=== PATIENT | female | born 1970 | race Caucasian/White ===

== ENCOUNTER → 2016-08-12 | Outpatient (CLI) | payer OTHER ==
[~2016-08-12] MED LIST: AMLO10TA82 PO; ASP81TEC PO; NEBI5TAB8 PO; NFNEB10T PO; OMEP40CA36 PO; OMG1KC PO; SULF1TAB34 PO
--- NOTE | 2016-08-12 18:52 | Diagnostic Imaging Report ---
INDICATION: Left knee pain anterior and below the patella, arthritis. COMPARISON STUDY: None. FINDINGS: Three views of the left knee demonstrate minimal degenerative changes. No fracture, subluxation, or joint effusion is present. IMPRESSION: There are minimal degenerative changes of the patellofemoral joint. Dictated by: Dictated on workstation # [id number]
== END ==
LOC: RAD 17:49
PROVIDERS: ATTEND Family Medicine
DX: M17.12 Unilateral primary osteoarthritis, left knee (principal)
CPT/HCPCS: 73562

== ENCOUNTER → 2017-01-22 | Outpatient (CLI) | payer OTHER | LOC: CARD 10:02 | PROVIDERS: ATTEND Physician Assistant | DX: I25.10 Atherosclerotic heart disease of native coronary artery without angina pectoris (principal); I65.23 Occlusion and stenosis of bilateral carotid arteries; I10 Essential (primary) hypertension; E78.2 Mixed hyperlipidemia | CPT/HCPCS: 93306 ==

== ENCOUNTER → 2017-02-18 | Outpatient (CLI) | payer OTHER ==
--- NOTE | 2017-02-18 14:16 | Diagnostic Imaging Report ---
Left breast diagnostic mammogram with tomography. INDICATION: Left breast lump. The current study was also evaluated with a Computer Aided Detection (CAD) system. COMPARISON: 05/06/2016. FINDINGS: The left breast is composed of scattered fibroglandular densities. The area of palpable lump in the lateral aspect of the left breast is marked with no underlying abnormality seen. No suspicious calcification, mass or architectural distortion is noted. IMPRESSION: No mammographic evidence of malignancy. Ultrasound evaluation is pending. ACR BI-RADS Category 0: Incomplete. (Needs additional imaging evaluation). Result letter will be mailed to the patient. Note: At least 10% of breast cancer is not imaged by mammography. Dictated by: Dictated on workstation # [id number]
--- NOTE | 2017-02-18 14:21 | Diagnostic Imaging Report ---
Left breast ultrasound. INDICATION: Palpable lump. FINDINGS: The area of palpable lump in the left breast at 1 o'clock zone 4 cm from the nipple and surrounding region is scanned with no underlying abnormality. IMPRESSION: Negative study. Clinical follow-up of the palpable area is recommended. ACR BI-RADS Category 1: Negative. Dictated by: Dictated on workstation # [id number]
== END ==
LOC: RAD 07:48
PROVIDERS: ATTEND Family Medicine
DX: N63.20 Unspecified lump in the left breast, unspecified quadrant (principal)
CPT/HCPCS: 76642

== ENCOUNTER → 2017-10-19 | Outpatient (CLI) | payer OTHER ==
--- NOTE | 2017-10-20 13:15 | Diagnostic Imaging Report ---
INDICATION: Routine screening. COMPARISON: 05/06/2016 and 06/15/2015 as well as a left mammogram from 02/18/2017. TECHNIQUE: 2D and 3D bilateral screening mammography was performed with CAD. FINDINGS: Scattered fibroglandular densities are identified bilaterally. No dominant mass or malignant appearing microcalcifications are seen. There are benign calcifications present. The axillae are unremarkable. IMPRESSION: No mammographic features suspicious for malignancy are identified. ACR BI-RADS Category 2: Benign findings. Result letter will be mailed to the patient. Note: At least 10% of breast cancer is not imaged by mammography. Dictated by: Dictated on workstation # [id number]
== END ==
LOC: RAD 15:37
PROVIDERS: ATTEND Obstetrics & Gynecology
DX: Z12.31 Encounter for screening mammogram for malignant neoplasm of breast (principal)
CPT/HCPCS: 77067

== ENCOUNTER → 2018-04-08 | Outpatient (CLI) | payer OTHER ==
--- NOTE | 2018-04-08 08:14 | Diagnostic Imaging Report ---
PROCEDURE: MRI lumbar spine. TECHNIQUE: Multiplanar, multisequence MRI of the lumbar spine was performed without contrast. INDICATION: Low back injury from lifting. FINDINGS: Vertebral body height and alignment appear normal. The vertebral bodies have normal signal characteristics. There are no intrinsic cord abnormalities. There is slight desiccation of the discs at L1-L2, L2-L3 and L3-L4 and there are small Schmorl's nodes of the opposing endplates at each of those levels. At L4-L5, there is disc space narrowing with concentric bulging of the annulus. There is also some thickening of the ligamenta flava and hypertrophy of the facets. This is causing bilateral lateral recess narrowing. At L5-S1, there is a left paracentral disc herniation causing moderate ventral extradural defect. There is also some thickening of ligamenta flava and hypertrophy of the facets. IMPRESSION: Left paracentral disc herniation at L5-S1. There is bulging disc and hypertrophied facets at L4-L5 causing bilateral lateral recess narrowing at that level. Dictated by: Dictated on workstation # [id number]
== END ==
LOC: RAD 07:00
PROVIDERS: ATTEND Family Medicine
DX: S39.92XA Unspecified injury of lower back, initial encounter (principal); M51.17 Intervertebral disc disorders with radiculopathy, lumbosacral region; M48.061 Spinal stenosis, lumbar region without neurogenic claudication; X50.9XXA Other and unspecified overexertion or strenuous movements or postures, initial encounter
CPT/HCPCS: 72148

== ENCOUNTER 2018-11-18 05:40 | Outpatient (CLI) | payer OTHER ==
[~2018-11-18] VITALS: Ht 172.7 cm; Wt 96.2 kg
[~2018-11-18 05:40] MED LIST changes: -AMLO10TA7 PO; -ASPI-999 PO; -METO-370 PO; -OMEP20CA12 PO; -PRAV20TA3 PO
[2018-11-18] MEDS ORDERED: OMEP20CA12 PO (10:28)
[2018-11-18] MEDS ORDERED: METO-370 PO (10:28)
[2018-11-18] MEDS ORDERED: AMLO10TA7 PO (10:28)
[2018-11-18] MEDS ORDERED: PRAV20TA3 PO (10:28)
[2018-11-18] MEDS ORDERED: ASPI-999 PO (10:28)
== END 2018-11-18 10:32 | disposition home or self-care (01) ==
LOC: PREOP 05:40
PROVIDERS: ATTEND Surgery
DX: Z01.818 Encounter for other preprocedural examination (principal)

== ENCOUNTER → 2018-11-18 | Outpatient (CLI) | payer OTHER ==
[~2018-11-18] MED LIST changes: +AMLO10TA7 PO; +ASPI-999 PO; +METO-370 PO; +OMEP20CA12 PO; +PRAV20TA3 PO
--- NOTE | 2018-11-18 09:59 | Diagnostic Imaging Report ---
INDICATION: Routine screening. COMPARISON: 10/19/2017 and 05/06/2016. TECHNIQUE: 2D and 3D bilateral screening mammography was performed with CAD. FINDINGS: Scattered fibroglandular densities are identified bilaterally. The parenchymal pattern is stable. No dominant mass or malignant appearing microcalcifications are seen. The axillae are unremarkable. IMPRESSION: No mammographic features suspicious for malignancy are identified. ACR BI-RADS Category 1: Negative. Result letter will be mailed to the patient. Note: At least 10% of breast cancer is not imaged by mammography. Dictated by: Dictated on workstation # [id number]
== END ==
LOC: RAD 07:44
PROVIDERS: ATTEND Obstetrics & Gynecology
DX: Z12.31 Encounter for screening mammogram for malignant neoplasm of breast (principal)
CPT/HCPCS: 77067

== ENCOUNTER 2018-11-19 12:48 | Day surgery (SDC) | payer OTHER ==
[~2018-11-19] VITALS: Ht 172.7 cm; Wt 96.2 kg
[~2018-11-19 12:48] MED LIST changes: +AMLO10TA7 PO; +ASPI-999 PO; +METO-370 PO; +OMEP20CA12 PO; +PRAV20TA3 PO
[2018-11-19] MEDS ORDERED: NS IV 500 ML 500 ML ONE (12:56)
[2018-11-19] MEDS ORDERED: NS IV 500 ML 500 ML IV PRN (12:56)
[2018-11-19] MEDS ORDERED: fentaNYL INJECTION 100 MCG/2 ML AMP IVP ONE (13:00)
[2018-11-19] MEDS ORDERED: MIDAZOLAM 2 MG/2 ML (VERSED) VIAL IVP ONE (13:00)
[2018-11-19] MEDS ORDERED: LIDOCAINE JELLY 2% 6 ML SYRINGE MM PRN (13:00)
[2018-11-19 13:10] VITALS: BP 136/79
--- NOTE | 2018-11-19 13:13 | Conscious Sedation/ASA ---
Conscious Sedation Pre-Proced Time 13:00 ASA Score 2 For ASA 3 and 4: Consider anesthesia and medical clearance. Also, for patients with a history of failed moderate sedation consider anesthesia. Airway Lungs Heart ASA score ASA 1: a normal healthy patient ASA 2: a patient with a mild systemic disease (mid diabetes, controlled hypertension, obesity ASA 3: a patient with a severe systemic disease that limits activity (angina, COPD, prior Myocardial infarction) ASA 4: a patient with an incapacitating disease that is a constant threat to life (CHF, renal failure) ASA 5: a moribund patient not expected to survive 24 hrs. (ruptured aneurysm) ASA 6: a declared brain- patient whose organs are being harvested. For emergent operations, add the letter E after the classification Mallampati Classification Grade 2 Sedation Plan Analgesia, Amnesia, Plan communicated to team members, Discussed options with patient/fam, Discussed risks with patient/fam The patient is an appropriate candidate to undergo the planned procedure, sedation, and anesthesia. The patient immediately re-assessed prior to indication. CODI OSBORNE MD Nov 19, 2018 13:13
--- NOTE | 2018-11-19 13:13 | Progress Note-Pre Operative ---
Pre-Operative Progress Note H&P Reviewed The H&P was reviewed, patient examined and no changes noted. Date Seen by Provider: Nov 19, 2018 Time Seen by Provider: 13:00 Date H&P Reviewed: Nov 19, 2018 Time H&P Reviewed: 13:00 Pre-Operative Diagnosis: CODI Sevilla MD Nov 19, 2018 13:13
--- NOTE | 2018-11-19 13:14 | Discharge Inst-Surgical ---
D/C Lap Instructions-DYLON Follow Up Activity as tolerated High Fiber Diet 25g or more per day Avoid Alcohol, Caffeine, Spicy [place] and Acid foods. Drink 64 fluid oz or more of fluids per day. Symptoms to Report: Fever over 101 degree F, Nausea/Vomiting If any problems/questions: Contact your physician or go to Emergency Room CODI OSBORNE MD Nov 19, 2018 13:14
[2018-11-19] MEDS ORDERED: morphine INJ 10 MG/ML 1ML (SYR OR VIAL) IVP PRN ×2 (13:15)
[2018-11-19] MEDS ORDERED: HYDROcodone/APAP 5 MG/325 MG (LORTAB) TAB PO PRN (13:15)
[2018-11-19] MEDS ORDERED: ONDANSETRON 4 MG/2 ML (SDV) Z0FRAN IVP PRN (13:15)
[2018-11-19] MEDS ORDERED: ACETAMINOPHEN 325 MG TABLET PO PRN (13:15)
[2018-11-19] MEDS ORDERED: LIDOCAINE JELLY 2% 6 ML SYRINGE ONE (14:29)
[2018-11-19] MEDS ORDERED: fentaNYL INJECTION 100 MCG/2 ML AMP ONE ×2 (14:29)
[2018-11-19] MEDS ORDERED: MIDAZOLAM 2 MG/2 ML (VERSED) VIAL ONE ×4 (14:29→14:30)
--- NOTE | 2018-11-19 15:46 | Progress Note-Post Operative ---
Post-Operative Progess Note Surgeon (s)/Assistant Women'S Basketball Coach (s) Surgeon CODI OSBORNE MD Assistant Women'S Basketball Coach: none Pre-Operative Diagnosis screening Post-Operative Diagnosis mild chronic stage 2 ext and int hemorrhoids, mild sigmoid diverticulosis. Procedure & Operative Findings Date of Procedure 11/19/18 Procedure Performed/Findings colonoscopy Anesthesia Type cs Estimated Blood Loss Estimated blood loss (mL): minimal Specimens/Packing Specimens Removed none CODI OSBORNE MD Nov 19, 2018 15:46
[2018-11-19 16:15] VITALS: BP 135/74
--- NOTE | 2018-11-19 21:12 | OPERATIVE REPORT ---
DATE OF SERVICE: 11/19/2018 ATTENDING PRIMARY CARE PHYSICIAN: Dr. Soledad Silver. PREOPERATIVE DIAGNOSIS: Screening colonoscopy. POSTOPERATIVE DIAGNOSES: Mild chronic stage II external and internal hemorrhoids, mild sigmoid diverticulosis. PROCEDURE: Colonoscopy. SURGEON: Dr. Osborne. ANESTHESIA: Conscious sedation. ESTIMATED BLOOD LOSS: Minimal. FINDINGS: Mild chronic stage II external and internal hemorrhoids, mild sigmoid diverticulosis. DISPOSITION: The patient tolerated the procedure well. INDICATIONS: The patient is a 48-year-old female referred over to us for screening colonoscopy. She states that she is doing well for the most part. 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 She does not report any major issues with diarrhea nor constipation as well as no red blood per rectum nor any dark tarry stools. She also does not report any family history of colon cancer. DESCRIPTION OF PROCEDURE: The patient was brought to the endoscopy suite, laid in the left lateral decubitus position. After adequate IV pain and sedating medications and conscious sedation anesthesia, digital rectal examination was performed. Mild chronic stage II external and internal hemorrhoids were identified, which were not actively edematous or inflamed and no bleeding. Normal sphincter tone was felt and there were no palpable masses. The endoscope was then intubated into the anus and rectum gently insufflated. The endoscope was then advanced to the valves of Romero of the rectum with no polyps or any neoplasms identified. Through the sigmoid colon, a few mild isolated diverticula identified. The endoscope was then advanced to the remainder of the descending, transverse and ascending colon to the cecum. These segments were normal. There were no polyps or any neoplasms identified throughout the colon or rectum. The endoscope was slowly withdrawn while taking a second look and suctioning of residual air with no additional findings. The patient tolerated the procedure well. We will recommend medical management with a high fiber diet with at least 25 grams of fiber daily as well as significant amounts of water to promote soft stools on a daily basis. She does not need another colonoscopy for another 10 years. Job ID: [id number] DocumentID: [id number] Dictated Date: 11/19/2018 15:38:52 Interior Surface Insulation Worker Date: 11/19/2018 21:12:09 Dictated By: CODI OSBORNE MD
== END 2018-11-19 16:20 | disposition home or self-care (01) ==
LOC: ENDO 12:48
PROVIDERS: ATTEND Surgery
DX: Z12.11 Encounter for screening for malignant neoplasm of colon (principal); K57.30 Diverticulosis of large intestine without perforation or abscess without bleeding; K64.1 Second degree hemorrhoids; K21.9 Gastro-esophageal reflux disease without esophagitis; E78.00 Pure hypercholesterolemia, unspecified; I10 Essential (primary) hypertension; G62.9 Polyneuropathy, unspecified; M48.00 Spinal stenosis, site unspecified; Z88.1 Allergy status to other antibiotic agents; Z88.5 Allergy status to narcotic agent; Z79.899 Other long term (current) drug therapy; F17.210 Nicotine dependence, cigarettes, uncomplicated

== ENCOUNTER → 2019-03-11 | Outpatient (CLI) | payer OTHER ==
[~2019-03-11] MED LIST changes: -METO-370 PO; +METO50TA7 PO; +OMEP-280 PO; -OMEP20CA12 PO
== END ==
LOC: CARD 10:34
PROVIDERS: ATTEND Physician Assistant
DX: I35.1 Nonrheumatic aortic (valve) insufficiency (principal); I51.7 Cardiomegaly; I25.10 Atherosclerotic heart disease of native coronary artery without angina pectoris; I65.29 Occlusion and stenosis of unspecified carotid artery; K21.9 Gastro-esophageal reflux disease without esophagitis
CPT/HCPCS: 93306

== ENCOUNTER 2019-05-29 10:52 | Emergency (ER) | payer OTHER ==
[~2019-05-29] VITALS: Ht 172.7 cm; Wt 95.3 kg
[2019-05-29] MEDS ORDERED: ASPIRIN 81 MG CHEW (CHILDREN'S ASA) PO ONE (11:15)
[2019-05-29] MEDS ORDERED: D5 NS 1000 ML IV SOLUTION 1,000 ML IV ONE (11:21)
[2019-05-29 11:22] LABS: BASOPHILS % (AUTO) 0 % (0-10); EOSINOPHILS # (AUTO) 0.1 10^3/uL (0.0-0.3); EOSINOPHILS % (AUTO) 1 % (0-10); HEMATOCRIT 39 % (35-52); HEMOGLOBIN 13.2 G/DL (11.5-16.0); LYMPHOCYTES # (AUTO) 1.7 X 10^3 (1.0-4.0); LYMPHOCYTES % (AUTO) 29 % (12-44); MEAN CORPUSCULAR HEMOGLOBIN 30 PG (25-34); MEAN CORPUSCULAR HGB CONC 34 G/DL (32-36); MEAN CORPUSCULAR VOLUME 88 FL (80-99); MEAN PLATELET VOLUME 10.8 FL (7.4-10.4); MONOCYTES # (AUTO) 0.4 X 10^3 (0.0-1.0); MONOCYTES % (AUTO) 7 % (0-12); NEUTROPHILS # (AUTO) 3.7 X 10^3 (1.8-7.8); NEUTROPHILS % (AUTO) 62 % (42-75); PLATELET COUNT 227 10^3/uL (130-400); RED CELL DISTRIBUTION WIDTH 12.9 % (10.0-14.5); WHITE BLOOD COUNT 5.9 10^3/uL (4.3-11.0)
[2019-05-29] MEDS ORDERED: ONDANSETRON 4 MG/2 ML (SDV) Z0FRAN IVP ONE (11:30)
[2019-05-29 11:36] LABS: PROTHROMBIN TIME PATIENT 13.8 SEC (12.2-14.7)
[2019-05-29 11:41] LABS: ALANINE AMINOTRANSFERASE 25 U/L (0-55); ALBUMIN 4.6 GM/DL (3.2-4.5); ALKALINE PHOSPHATASE 59 U/L (40-136); BILIRUBIN,TOTAL 0.4 MG/DL (0.1-1.0); BUN/CREATININE RATIO 13; CALCIUM 9.5 MG/DL (8.5-10.1); CARBON DIOXIDE 21 MMOL/L (21-32); CHLORIDE 107 MMOL/L (98-107); CREATININE SERUM 0.71 MG/DL (0.60-1.30); GFR ESTIMATED > 60; GLUCOSE 103 MG/DL (70-105); MAGNESIUM 1.8 MG/DL (1.6-2.4); POTASSIUM 3.6 MMOL/L (3.6-5.0); SODIUM 140 MMOL/L (135-145); TOTAL PROTEIN 7.4 GM/DL (6.4-8.2)
--- NOTE | 2019-05-29 11:49 | ED Chest Pain ---
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 PT STATES HX OF CHEST PAIN. NO C/O N/V/D. PT REPORTS PAIN DOES NOT RADIATE. PT REPORTS LEFT SIDE OF FACE "TINGLING". NO C/O WEAKNESS. Nursing Sepsis Screen: No Definite Risk History of Present Illness Date Seen by Provider: May 29, 2019 Time Seen by Provider: 11:05 Initial Comments 48-year-old female presents for a myriad of symptoms that began this morning. She slept last night, no complaints, Awoke this morning feeling fine. Had 2 cups of coffee, no food to eat. At 10:00 am she got in the shower and became dizzy and nauseated. She did not vomit or fall. The left side of her face, left arm and leg began to tingle. She has no history of diabetes or hypoglycemia. Then at approximately 10:30 she began having midsternal and left epigastric pain. The pain did not radiate into her shoulder, neck or jaw. She's had occassional chest pain/fluttering for 1-2 year, she sees Dr. Arellano and had an Echo in Mar 2019 that showed mild aortic regurgitation. GERD symptoms for which she takes omeprazole. She denies chest pain at this time, she took Aspirin this am. She is not on Nitro. She took metoprolol, pravastatin, and amlodipine this morning. She reports the tingling in her extremities has improved she still has mild tingling on the left side of her face. There is no facial drooping or complaints of weakness in any extremity. She denies a headache. But does still have mild nausea. She smokes cigarettes, 1 pack daily. She sees Dr. Arellano, next appt Mar 2020. History of Thyroid disorder in her 20s but after having her daughter TSH and T4 normal. Timing/Duration: 1 hour Severity/Quality: mild Location: central, epigastric Radiation: no radiation Activities at Onset: none Prior CP/Workup: echocardiography Modifying Factors: improves with rest ASA po CHIEF PSYCHOLOGIST: Yes NTG SL CHIEF PSYCHOLOGIST: No Associated Symptoms: No denies symptoms, No abdominal pain, No back pain, No di aphoresis; dizziness; No edema, No fatigue, No fever/chills, No headache; heartburn, nausea/vomiting; No rash, No shortness of breath, No swelling/lump in chest; syncope; No weakness Allergies and Home Medications Allergies Coded Allergies: codeine (Verified Allergy, Mild, ITCHING/HIVES, 11/18/18) erythromycin base (Verified Allergy, Mild, ITCHING/HIVES, 11/18/18) levofloxacin (Verified Allergy, Mild, ITCHING/HIVES, 11/18/18) tetracycline (Verified Allergy, Mild, "ALL CYCLINS", 11/18/18) Home Medications Amlodipine Besylate 10 Mg Tablet, 10 MG PO DAILY, (Reported) Aspirin 81 Mg Tab.chew, 81 MG PO DAILY, (Reported) Metoprolol Succinate 50 Mg Tab.er.24h, 50 MG PO BID, (Reported) Omeprazole 20 Mg Capsule.dr, 20 MG PO BID, (Reported) Pravastatin Sodium 20 Mg Tablet, 20 MG PO DAILY, (Reported) Patient Home Medication List Home Medication List Reviewed: Yes Review of Systems Review of Systems Constitutional: see HPI, dizziness EENTM: No Symptoms Reported, See HPI Respiratory: No Symptoms Reported, See HPI Cardiovascular: See HPI, Chest Pain Gastrointestinal: No Symptoms Reported, See HPI Genitourinary: No Symptoms Reported, See HPI Musculoskeletal: no symptoms reported, see HPI Skin: no symptoms reported, see HPI Psychiatric/Neurological: No Symptoms Reported, See HPI All Other Systems Reviewed Negative Unless Noted: Yes Past Fcdffqj-Hxezxw-Juhnaf Hx Past Med/Social Hx: Reviewed Nursing Past Med/Soc Hx Patient Social History Alcohol Use: Denies Use Recreational Drug Use: No Smoking Status: Current Everyday Smoker Type Used: Cigarettes 2nd Hand Smoke Exposure: Yes Recent Foreign Travel: No Contact w/Someone Who Travel: No Recent Infectious Disease Expo: No Recent Hopitalizations: No Physical Abuse: No Sexual Abuse: No Mistreated: No Fear: No Immunizations Up To Date Date of Influenza Vaccine: Feb 15, 2018 Seasonal Allergies Seasonal Allergies: Yes Past Medical History Surgeries: Yes (2 C-SECT.,ANKLE,CYSTS REMOVED FROM UNDERARMS, BACK) Gallbladder Respiratory: No Cardiac: Yes High Cholesterol, Hypertension Neurological: No Reproductive Disorders: No Sexually Transmitted Disease: No HIV/AIDS: No Genitourinary: No Gastrointestinal: Yes Gastroesophageal Reflux, Hiatal Hernia Musculoskeletal: Yes Arthritis Endocrine: No HEENT: Yes (GLASSES) Loss of Vision: Denies Hearing Impairment: Denies Cancer: No Psychosocial: No Integumentary: No Blood Disorders: No Adverse Reaction/Blood Tranf: No (N/A) Physical Exam Vital Signs Vital Signs - First Documented 05/29/19 12:54 Pulse Ox 99 Capillary Refill : Less Than 3 Seconds Height, Weight, BMI Height: 5'8.00" Weight: 212lbs. 0.0oz. 96.352533xk; 31.00 BMI Method: General Appearance: No Apparent Distress, WD/WN HEENT: PERRL/EOMI, TMs Normal, Normal ENT Inspection, Pharynx Normal Neck: Full Range of Motion, Normal Inspection, Non Tender, Supple Respiratory: Chest Non Tender, Lungs Clear, Normal Breath Sounds Cardiovascular: Regular Rate, Rhythm, No Murmur, Normal Peripheral Pulses Gastrointestinal: Normal Bowel Sounds, Non Tender, Soft Extremity: Normal Capillary Refill, Normal Inspection, Normal Range of Motion, Non Tender, No Calf Tenderness Neurologic/Psychiatric: Alert, Oriented x3, No Motor/Sensory Deficits, Normal Mood/Affect, clinical support manager II-XII Norm as Tested Skin: Normal Color, Warm/Dry Lymphatic: No Adenopathy Progress/Results/Core Measures Results/Orders Lab Results Laboratory Tests Test 05/29/19 11:16 Range/Units White Blood Count 5.9 4.3-11.0 10^3/uL Red Blood Count 4.47 4.35-5.85 10^6/uL Hemoglobin 13.2 11.5-16.0 G/DL Hematocrit 39 35-52 % Mean Corpuscular Volume 88 80-99 FL Mean Corpuscular Hemoglobin 30 25-34 PG Mean Corpuscular Hemoglobin Concent 34 32-36 G/DL Red Cell Distribution Width 12.9 10.0-14.5 % Platelet Count 227 130-400 10^3/uL Mean Platelet Volume 10.8 H 7.4-10.4 FL Neutrophils (%) (Auto) 62 42-75 % Lymphocytes (%) (Auto) 29 12-44 % Monocytes (%) (Auto) 7 0-12 % Eosinophils (%) (Auto) 1 0-10 % Basophils (%) (Auto) 0 0-10 % Neutrophils # (Auto) 3.7 1.8-7.8 X 10^3 Lymphocytes # (Auto) 1.7 1.0-4.0 X 10^3 Monocytes # (Auto) 0.4 0.0-1.0 X 10^3 Eosinophils # (Auto) 0.1 0.0-0.3 10^3/uL Basophils # (Auto) 0.0 0.0-0.1 10^3/uL Prothrombin Time 13.8 12.2-14.7 SEC INR Comment 1.0 0.8-1.4 Activated Partial Thromboplast Time 29 24-35 SEC Sodium Level 140 135-145 MMOL/L Potassium Level 3.6 3.6-5.0 MMOL/L Chloride Level 107 98-107 MMOL/L Carbon Dioxide Level 21 21-32 MMOL/L Anion Gap 12 5-14 MMOL/L Blood Urea Nitrogen 9 7-18 MG/DL Creatinine 0.71 0.60-1.30 MG/DL Estimat Glomerular Filtration Rate > 60 BUN/Creatinine Ratio 13 Glucose Level 103 70-105 MG/DL Calcium Level 9.5 8.5-10.1 MG/DL Corrected Calcium 8.5-10.1 MG/DL Magnesium Level 1.8 1.6-2.4 MG/DL Total Bilirubin 0.4 0.1-1.0 MG/DL Aspartate Amino Transf (AST/SGOT) 20 5-34 U/L Alanine Aminotransferase (ALT/SGPT) 25 0-55 U/L Alkaline Phosphatase 59 40-136 U/L Myoglobin 31.2 10.0-92.0 NG/ML Troponin I < 0.028 <0.028 NG/ML Total Protein 7.4 6.4-8.2 GM/DL Albumin 4.6 H 3.2-4.5 GM/DL My Orders Orders - ROLANDO RUEDA Cbc With Automated Diff (05/29/19 11:12) Magnesium (05/29/19 11:12) Chest 1 View, Ap/Pa Only (05/29/19 11:12) Ekg Tracing (05/29/19 11:12) Comprehensive Metabolic Panel (05/29/19 11:12) Myoglobin Serum (05/29/19 11:12) Protime With Inr (05/29/19 11:12) Partial Thromboplastin Time (05/29/19 11:12) O2 (05/29/19 11:12) Monitor-Rhythm Ecg Trace Only (05/29/19 11:12) Ed Iv/Invasive Line Start (05/29/19 11:12) Ed Iv/Invasive Line Start (05/29/19 11:21) D5 Ns 1000 Ml Iv Solution (Dextrose 5%/0 (05/29/19 11:21) Ct Head Wo-R/O Stroke (05/29/19 11:21) Ondansetron Injection (Zofran Injectio (05/29/19 11:30) Troponin I (05/29/19 11:16) Meclizine Tablet (Antivert Tablet) (05/29/19 12:30) Medications Given in ED Current Medications Medications Dose Ordered Sig/Jolie Route Start Time Stop Time Status Last Admin Dose Admin Dextrose/Sodium Chloride 1,000 ml @ 0 mls/hr Q0M ONCE IV 05/29/19 11:21 05/29/19 11:24 DC 05/29/19 11:34 999 MLS/HR Meclizine HCl 25 mg ONCE ONCE PO 05/29/19 12:30 05/29/19 12:31 DC 05/29/19 12:22 25 MG Ondansetron HCl 8 mg ONCE ONCE IVP 05/29/19 11:30 05/29/19 11:31 DC 05/29/19 11:34 8 MG Vital Signs/I&O 05/29/19 05/29/19 05/29/19 11:05 11:05 12:54 Temp 36.6 Pulse 75 74 Resp 17 18 B/P (MAP) 149/90 (109) 155/78 Pulse Ox 99 O2 Delivery Room Air Room Air Room Air Blood Pressure Mean: 109 Progress Progress Note : Time: 11:05 Progress Note Patient seen and evaluated will obtain an EKG, lab workup, chest x-ray, and CT head. We'll give D5 and half-normal saline 1 L per IV, and Zofran 8 mg IV. 1145 Patient continues to be free of chest pain, nausea has improved. Will give meclizine 25 mg orally for vertigo. 1215 Patient reports chest pain, nausea and vertigo have all improved. Discharge instructions and return precautions reviewed with the patient. All questions answered. Initial ECG Impression Date: May 29, 2019 Initial ECG Impression Time: 10:58 Initial ECG Rate: 76 Initial ECG Rhythm: Normal Sinus Initial ECG Intervals AL 156, QRSD 104, QT 388, QTC 437. Gable P 2, QRS 10, T 38. Initial ECG Impression: Normal Initial ECG Comparisson: Unchanged Comment Reviewed with Dr. Fleming agreed with interpretation. Diagnostic Imaging Diagonstic Imaging: CT Plain Films/CT/US/NM/MRI: head Comments NAME: LICO KEARNS [facility] REC#: [id number] PT STATUS: REG ER : 1970 PHYSICIAN: ROLANDO RUEDA ADMIT DATE: 05/29/19/ER Draft Date of Exam:05/29/19 CT HEAD WO-R/O STROKE INDICATION: Dizziness and left-sided weakness. TECHNIQUE: Multiple contiguous axial images were obtained through the brain without the use of intravenous contrast. Auto Exposure Controls were utilized during the CT exam to meet ALARA standards for radiation dose reduction. FINDINGS: There were no extra-axial fluid collections. No intracranial hemorrhage. No intracranial mass or mass effect. No midline shift. The ventricles are normal in size and position. There were no focal parenchymal abnormalities in the brain. Calvarial windows appear normal. IMPRESSION: Negative noncontrast brain CT. Dictated on workstation # [id number] Dict: 05/29/19 1159 Trans: 05/29/19 1203 [id number] [id number] Interpreted by: DENYS CARTER MD Electronically signed by: Reviewed: Reviewed by Me Departure Impression Primary Impression: Chest pain Qualified Codes: R07.9 - Chest pain, unspecified Additional Impression: Gastroesophageal reflux disease Qualified Codes: K21.9 - Gastro-esophageal reflux disease without eso phagitis Disposition: HOME, SELF-CARE Condition: Improved Departure-Patient Inst. Decision time for Depature: 12:40 Referrals: LUIZA WEI MD (PCP/Family) Primary Care Physician Patient Instructions: Chest Pain That Is Not Caused by the Heart (DC), Vertigo (a Type of Dizziness) (DC) Add. Discharge Instructions: Continue to take your aspirin and all other routine home medications. Take meclizine 25 mg every 6-8 hours as needed for dizziness. Follow up with your primary care provider or transportation consultant if symptoms are not improving or worsen Return to the emergency department for chest pain, weakness, blood in her chest, or any other new, urgent symptoms. All discharge instructions reviewed with patient and/or family. Voiced aby aguilera. Copy Copies To 1: NINA ARELLANO MD Copies To 2: LUIZA WEI MD, AMY ARNP May 29, 2019 11:49
--- NOTE | 2019-05-29 12:03 | Diagnostic Imaging Report ---
INDICATION: Dizziness and left-sided weakness. TECHNIQUE: Multiple contiguous axial images were obtained through the brain without the use of intravenous contrast. Auto Exposure Controls were utilized during the CT exam to meet ALARA standards for radiation dose reduction. FINDINGS: There were no extra-axial fluid collections. No intracranial hemorrhage. No intracranial mass or mass effect. No midline shift. The ventricles are normal in size and position. There were no focal parenchymal abnormalities in the brain. Calvarial windows appear normal. IMPRESSION: Negative noncontrast brain CT. Dictated by: Dictated on workstation # [id number]
--- NOTE | 2019-05-29 12:07 | Diagnostic Imaging Report ---
INDICATION: Dizziness and left-sided weakness and chest pain. Frontal chest obtained at 12:04 hours p.m. Heart and mediastinal silhouette are normal in appearance. The lungs are clear. There is no pneumothorax or pleural fluid. IMPRESSION: Negative chest. Dictated by: Dictated on workstation # [id number]
[2019-05-29] MEDS ORDERED: MECLIZINE 25 MG (ANTIVERT) TAB PO ONE (12:30)
[2019-05-29 12:54] VITALS: BP 155/78
== END 2019-05-29 12:54 | disposition home or self-care (01) ==
LOC: ER 10:52 → EDUNIT# 10:52 → ER 12:54
DX: K21.9 Gastro-esophageal reflux disease without esophagitis (principal); I10 Essential (primary) hypertension; E78.00 Pure hypercholesterolemia, unspecified; F17.210 Nicotine dependence, cigarettes, uncomplicated; Z79.82 Long term (current) use of aspirin; Z88.5 Allergy status to narcotic agent; Z88.1 Allergy status to other antibiotic agents
CPT/HCPCS: 36415; 70450; 71045; 80053; 83735; 83874; 84484; 85025; 85610; 85730; 93005; 93041; 96361; 96374

== ENCOUNTER → 2019-06-29 | Outpatient (CLI) | payer OTHER ==
[~2019-06-29] VITALS: Ht 173 cm; Wt 94.0 kg
[~2019-06-29] MED LIST changes: +CATHETER FLUSH 10 ML SYR IV PRN
[2019-06-29 09:27] VITALS: BP 127/78
--- NOTE | 2019-06-29 18:19 | STRESS TEST ---
DATE OF SERVICE: 06/29/2019 EXERCISE MYOVIEW STRESS TEST REPORT REFERRING PHYSICIAN: Soledad Silver MD Baseline heart rate is 82. Baseline blood pressure 129/74. Baseline EKG is sinus rhythm with no ischemic changes. In summary, the patient was injected with 10.28 mCi of technetium-99 Myoview and the resting images were obtained. Then, the patient started exercising with a baseline heart rate, blood pressure and EKG mentioned above, was able to exercise for 8 minutes on standard Juve protocol. With peak exercise level, EKG was showing no ischemic changes. Peak blood pressure was 216/82. During recovery, heart rate and blood pressure returned to baseline. Resting and stress images were reviewed. There is breast attenuation affecting the quality of the images. In addition, there is reversible ischemia involving the basal to mid anterior wall and anterior septum. SSS is 8, SDS 8, TID value 0.99. On the gated images, the left ventricle appeared to be in normal size, normal contractility, calculated ejection fraction 56%. CONCLUSION: 1. Good exercise tolerance, a total of 8 minutes on Juve protocol 9.7 achieving 95% of maximum expected heart rate. 2. Hypertensive response to exercise with peak blood pressure 216/82 returned to baseline during recovery. 3. Minimal EKG changes with exercise returned to baseline during recovery. 4. Breast attenuation with reversible ischemia involving the basal to mid anterior wall and anterior septum, which could be due to breast attenuation. 5. Normal left ventricular size with normal contractility. Calculated ejection fraction 56%. Job ID: [id number] DocumentID: [id number] Dictated Date: 06/29/2019 16:07:15 Quality Technician Date: 06/29/2019 18:18:11 Dictated By: NINA TORREZ MD
== END ==
LOC: CARD 07:02
PROVIDERS: ATTEND Internal Medicine Cardiovascular Disease
DX: I10 Essential (primary) hypertension (principal); E78.2 Mixed hyperlipidemia; I25.10 Atherosclerotic heart disease of native coronary artery without angina pectoris; I65.29 Occlusion and stenosis of unspecified carotid artery
CPT/HCPCS: 78452; 93017

== ENCOUNTER 2019-07-13 06:41 | Day surgery (SDC) | payer OTHER ==
[2019-07-13] VITALS (9 sets, daily range): BP systolic 109–148; BP diastolic 62–84
[~2019-07-13] VITALS: Ht 172 cm; Wt 94.0 kg
[~2019-07-13 06:41] MED LIST changes: -CATHETER FLUSH 10 ML SYR IV PRN; -OMEP-280 PO; +OMEP20CA18 PO
[2019-07-13] MEDS ORDERED: NS IV 1000 ML 1,000 ML ONE (06:47)
[2019-07-13] MEDS ORDERED: LIDOCAINE 1% INJ 20 ML 20 ML VIAL ONE (06:47)
[2019-07-13] MEDS ORDERED: HEParin (CATH LAB) 2,000 ML IV ONE (06:47)
[2019-07-13] MEDS ORDERED: NS IV 1000 ML 1,000 ML IV SCH ×2 (07:00→10:07)
[2019-07-13 07:17] LABS: HEMOGLOBIN 13.8 G/DL (11.5-16.0); WHITE BLOOD COUNT 3.9 10^3/uL (4.3-11.0)
[2019-07-13] MEDS ORDERED: ADAL40SY SQ (07:22)
[2019-07-13 07:24] LABS: BILIRUBIN,URINE NEGATIVE (NEGATIVE); CLARITY,URINE CLEAR; COLOR,URINE YELLOW; GLUCOSE, URINE (UA) NEGATIVE (NEGATIVE); KETONES,URINE NEGATIVE (NEGATIVE); LEUKOCYTE ESTERASE ,URINE NEGATIVE (NEGATIVE); NITRITE,URINE NEGATIVE (NEGATIVE); PROTEIN,URINE NEGATIVE (NEGATIVE)
[2019-07-13 07:34] LABS: PROTHROMBIN TIME PATIENT 13.6 SEC (12.2-14.7)
[2019-07-13 07:41] LABS: ALANINE AMINOTRANSFERASE 18 U/L (0-55); ALBUMIN 4.7 GM/DL (3.2-4.5); ALKALINE PHOSPHATASE 69 U/L (40-136); BILIRUBIN,TOTAL 0.3 MG/DL (0.1-1.0); BUN/CREATININE RATIO 12; CALCIUM 9.7 MG/DL (8.5-10.1); CARBON DIOXIDE 24 MMOL/L (21-32); CHLORIDE 108 MMOL/L (98-107); CHOLESTEROL 160 MG/DL (< 200); CREATININE SERUM 0.73 MG/DL (0.60-1.30); GFR ESTIMATED > 60; GLUCOSE 98 MG/DL (70-105); HDL CHOLESTEROL 48 MG/DL (40-60); POTASSIUM 4.1 MMOL/L (3.6-5.0); SODIUM 141 MMOL/L (135-145); TOTAL PROTEIN 7.6 GM/DL (6.4-8.2); TRIGLYCERIDES 99 MG/DL (<150); VLDL CHOLESTEROL 20 MG/DL (5-40)
[2019-07-13 07:49] LABS: BACTERIA,URINE NEGATIVE /HPF; WBC,URINE 0-2 /HPF
--- NOTE | 2019-07-13 07:55 | Diagnostic Imaging Report ---
INDICATION: Abnormal stress test. Hypertension. Coronary artery disease Single view of the chest shows normal heart size and vascularity. The lungs are clear. There is no effusion or pneumothorax. There is no bony abnormality. IMPRESSION: Normal chest with no change from 05/29/2019. Dictated by: Dictated on workstation # [id number]
[2019-07-13] MEDS ORDERED: MIDAZOLAM 5 MG/5 ML (VERSED) VIAL ONE (09:11)
[2019-07-13] MEDS ORDERED: fentaNYL INJECTION 100 MCG/2 ML AMP ONE (09:11)
[2019-07-13] MEDS ORDERED: VERAPAMIL 5 MG/2 ML (CALAN) VIAL IV ONE (09:45)
[2019-07-13] MEDS ORDERED: NITRO DRIP 25000 MCG/D5W 250 ML IV ONE (09:45)
[2019-07-13] MEDS ORDERED: HEParin 1000 UNIT/ML (10ML VIAL) FOR BOLUS ONE (09:45)
--- NOTE | 2019-07-13 09:47 | Cardiac Procedure Note-CS/ASA ---
Pre-Procedure Note Pre-Op Procedure Note H&P Reviewed The H&P was reviewed, patient examined and no changes noted. Date H&P Reviewed: Jul 13, 2019 Time H&P Reviewed: 09:46 Conscious Sedation Pre-Proced Time 09:47 ASA Score 3 For ASA 3 and 4: Consider anesthesia and medical clearance. Also, for patients with a history of failed moderate sedation consider anesthesia. Airway Lungs Heart ASA score ASA 1: a normal healthy patient ASA 2: a patient with a mild systemic disease (mid diabetes, controlled hypertension, obesity x ASA 3: a patient with a severe systemic disease that limits activity (angina, COPD, prior Myocardial infarction) ASA 4: a patient with an incapacitating disease that is a constant threat to life (CHF, renal failure) ASA 5: a moribund patient not expected to survive 24 hrs. (ruptured aneurysm) ASA 6: a declared brain- patient whose organs are being harvested. For emergent operations, add the letter E after the classification Mallampati Classification Grade 3 Sedation Plan Analgesia, Amnesia, Plan communicated to team members, Discussed options with patient/fam, Discussed risks with patient/fam The patient is an appropriate candidate to undergo the planned procedure, sedation, and anesthesia. The patient immediately re-assessed prior to indication. NINA TORREZ MD Jul 13, 2019 09:47
--- NOTE | 2019-07-13 10:09 | Discharge Inst-Post CATH ---
Discharge Inst-CATH/EP Problems Reviewed?: Yes Post Cardiac Cath/EP D/C Inst Follow Up/Plan Appointment with Dr. TORREZ's office in 2-4 weeks <b>CARDIAC CATH/EP PROCEDURE DISCHARGE INSTRUCTIONS</b> ACTIVITY * Go Home directly and rest. * Limit activity of the leg (or wrist if it was used) for 7 days including aerobics, swimming, jogging, bicycling, etc. * Restrict stair-climbing for 7 days if possible, if not, climb up with your non-cath leg, then bring together on the same step. * Avoid lifting, pushing, pulling or excessive movement of the affected extremity for 7 days. * Customary sexual activity may be resumed after 2 days-use caution not to use a position that strains or causes pain to the affected extremity. * No driving for 24 hours. * NO SMOKING. * Avoid straining for bowel movements for 7 days. * Gentle walking on level ground is allowed. * Returning to work will depend on the type of procedure and the results. Your doctor will discuss this with you. CALL YOUR DOCTOR FOR ANY OF THE FOLLOWING: *If bleeding from the puncture site occurs- Apply gentle pressure to site with clean cloth and call your doctor or EMS. * If a knot or lump forms under the skin, increases in size, or causes pain. * If bruising appears to be worsening or moving further down your leg instead of disappearing. * Temperature above 101 F. CARE OF YOUR GROIN INCISION; * Bruising or purple discoloration of the skin near the puncture site is common. * You may shower only, no bathtub bathing for 5 days. Be careful to avoid slipping as your leg may feel stiff. * If a closure device was used on your femoral artery, please see the attached guide regarding care of the device and your leg. * Leave dressing on FOR 24 hours. CARE OF YOUR WRIST INCISION; * Bruising or purple discoloration of the skin near the puncture site is common. * You may shower. * DO NOT submerge wrist. * Leave dressing on FOR 24 hours. NINA TORREZ MD Jul 13, 2019 10:09
--- NOTE | 2019-07-13 10:12 | Cardiac Cath Report ---
Cardiac Cath Report Physician (s)/Assistant Professor Of Radiology (s) Physician NINA TORREZ MD Pre-Procedure Diagnosis Pre-Procedure Diagnosis: Coronary artery disease Post-Procedure Note Procedure Start Date: Jul 13, 2019 Name of Procedure: Left heart catheterization Findings/Procedure Note PROCEDURE NOTE: 49-year-old lady with hypertension, had an abnormal stress test, scheduled for cardiac catheterization possible PTCA. After explaining the procedure to the patient, all pros and cons were explained, all questions were answered. The patient signed the consent and then she was placed on the cardiac catheterization laboratory. Groin was prepped SL fashion local anesthesia was used. Sheath placed in the right radial artery, [place] catheter was used, advanced to the left ventricular cavity, pressure was measured, pullback LV to aorta was then current, intubated the coronary system and angiogram was done. At the end of the procedure the sheath was removed. Vascular band was used FINDINGS: Hemodynamics LV 124/19, end-diastolic pressure of 19 Aorta 128/78 mean of 69 ANATOMY: Left Main is free of obstructive disease Left Anterior Descending is tortuous artery with [id number] disease at the midportion, nonobstructive disease Left Circumflex has mild disease nonobstructive disease Right Coronory Artery is dominant artery with mild disease no obstructive disease LV Gram was not done, pressure was measured CONCLUSION: 1. Mild coronary artery disease with some tortuosity in the LAD, nonobstructive disease 2. Mildly elevated left ventricular end-diastolic pressure DISCUSSION AND RECOMMENDATION: Medical therapy is recommended no intervention is needed Anesthesia Type: Conscious Sedation Estimated blood loss (mL): 5 ml Contrast Amount: 35 ml Total Radiation Dose: 266 mGy Post-Procedure Diagnosis Post-operative diagnosis: Chest pain Coronary artery disease Hypertension Hyperlipidemia NINA TORREZ MD Jul 13, 2019 10:12
--- NOTE | 2019-07-13 10:40 | NUR ---
PT ARRIVED TO ROOM 510 AT 1025 VIA BED ACCOMPANIED BY LUMBER TYING MACHINE OPERATOR STAFF, BEDSIDE REPORT RECEIVED, PT CONNECTED TO VITALS MONITOR AND RIGHT WRIST SITE ASSESSED. PT HAD A CLEAN CATH AND WAS TRANSFERRED TO DAY SURG ROOM 18 BY THIS RN VIA BED. BEDSIDE REPORT GIVEN.
== END 2019-07-13 12:45 | disposition home or self-care (01) ==
LOC: CATH 06:41 → SDC 10:41 → CATH 12:45
PROVIDERS: ATTEND Internal Medicine Cardiovascular Disease
DX: I25.10 Atherosclerotic heart disease of native coronary artery without angina pectoris (principal); I10 Essential (primary) hypertension; I65.23 Occlusion and stenosis of bilateral carotid arteries; E78.2 Mixed hyperlipidemia; K21.9 Gastro-esophageal reflux disease without esophagitis; G47.30 Sleep apnea, unspecified; E66.9 Obesity, unspecified; Z88.5 Allergy status to narcotic agent; Z88.1 Allergy status to other antibiotic agents; Z79.82 Long term (current) use of aspirin; Z87.891 Personal history of nicotine dependence; Z68.31 Body mass index [BMI] 31.0-31.9, adult; Z79.899 Other long term (current) drug therapy; Z90.49 Acquired absence of other specified parts of digestive tract; Z83.3 Family history of diabetes mellitus; Z80.3 Family history of malignant neoplasm of breast; Z82.3 Family history of stroke
CPT/HCPCS: 36415; 36430; 71045; 80053; 80061; 81000; 85027; 85610; 85730; 87081; 93458

== ENCOUNTER → 2019-10-25 | Outpatient (CLI) | payer OTHER ==
[~2019-10-25] MED LIST changes: +ADAL40SY SQ
--- NOTE | 2019-10-25 18:00 | Diagnostic Imaging Report ---
INDICATION: Injury. Foot and ankle swelling. Difficulty walking. COMPARISON: None FINDINGS: 3 radiographic views of the left foot were obtained. There is moderate generalized soft tissue edema. Extraosseous calcifications are noted adjacent to the distal medial malleolus and are felt to be on the basis of probable old avulsion fractures. No acute appearing fracture of the left ankle is seen. Osseous structures are otherwise intact. Joint spaces are maintained. No unexpected radiopaque foreign bodies are seen. IMPRESSION: 1. Moderate generalized soft tissue edema of the left ankle, but no evidence of acute fracture or dislocation. 2. Probable old avulsion fractures of the medial malleolus. Dictated by: Dictated on workstation # [id number]
--- NOTE | 2019-10-25 18:02 | Diagnostic Imaging Report ---
INDICATION: Injury to left lower extremity. TIME OF EXAM: 5:23 PM FINDINGS: The frontal and lateral views of the tibia and fibula were obtained. Alignment at the knee and ankle appears normal. Tibia and fibula appear to be intact. No fractures are identified. IMPRESSION: 1. No acute bony abnormality is detected. Dictated by: Dictated on workstation # [id number]
--- NOTE | 2019-10-25 18:03 | Diagnostic Imaging Report ---
INDICATION: Injury to the left foot and ankle. TIME OF EXAM: 5:19 PM 3 views of the left foot were obtained. FINDINGS: The metatarsals appear intact. The phalanges are intact. Midfoot and hindfoot are unremarkable apart from a large plantar calcaneal spur. IMPRESSION: 1. No acute bony abnormality is detected. Dictated by: Dictated on workstation # [id number]
== END ==
LOC: RAD 16:58
PROVIDERS: ATTEND Family Medicine
DX: M25.572 Pain in left ankle and joints of left foot (principal); M79.672 Pain in left foot; M79.662 Pain in left lower leg
CPT/HCPCS: 73590; 73610; 73630

== ENCOUNTER → 2020-01-06 | Outpatient (CLI) | payer OTHER ==
--- NOTE | 2020-01-06 18:56 | Diagnostic Imaging Report ---
PROCEDURE: MRI left joint lower extremity without contrast. TECHNIQUE: Multiplanar, multisequence non contrast-enhanced MRI of the left lower extremity was accomplished. INDICATION: Injury, left ankle pain. EXAMINATION: Left lower extremity MRI 01/06/2020 FINDINGS: There are osseous fragments distal to the tip of the medial malleolus chronic in appearance. Talar dome is unremarkable. Spurring noted along the plantar aspect of the calcaneus. The adjacent plantar fascia is intact and unremarkable. The Achilles tendon is unremarkable. The peroneal tendons are intact. The extensor and flexor tendons intact. The anterior talofibular ligament and posterior talofibular ligament intact. Anterior and posterior inferior tibiofibular ligaments intact. Deltoid ligament is intact. There is diffuse nonspecific subcutaneous edema about the ankle especially laterally. There is a small amount of fluid within the posterior subtalar joint and posterior tibiotalar joint. IMPRESSION: 1. Ligaments and tendons intact 2. Small joint effusions with nonspecific subcutaneous edema about the foot and ankle. Dictated by: Dictated on workstation # [id number]
== END ==
LOC: RAD 15:30
PROVIDERS: ATTEND Nurse Practitioner
DX: M76.72 Peroneal tendinitis, left leg (principal); M25.475 Effusion, left foot
CPT/HCPCS: 73721

== ENCOUNTER → 2020-09-26 | Outpatient (CLI) | payer OTHER ==
[~2020-09-26] MED LIST changes: +AMLO-251 PO; -AMLO10TA7 PO; +CATHETER FLUSH 10 ML SYR IV PRN; +HOLD METFORMIN - RECEIVED CONTRAST 20 ML VIAL IV SCH; +IOHEXOL 350 MG/ML 100 ML (OMNIPAQUE 350) VIAL IV ONE; +NS 100 ML (IVPB) BAG IV ONE
[2020-09-26 12:35] LABS: BASOPHILS % (AUTO) 1 % (0-10); EOSINOPHILS % (AUTO) 1 % (0-10); HEMATOCRIT 40 % (35-52); HEMOGLOBIN 13.9 g/dL (11.5-16.0); LYMPHOCYTES % (AUTO) 23 % (12-44); MEAN CORPUSCULAR HEMOGLOBIN 30 pg (25-34); MEAN CORPUSCULAR HGB CONC 35 g/dL (32-36); MEAN CORPUSCULAR VOLUME 87 fL (80-99); MEAN PLATELET VOLUME 10.4 fL (9.0-12.2); MONOCYTES # (AUTO) 0.4 10^3/uL (0.0-1.0); MONOCYTES % (AUTO) 9 % (0-12); NEUTROPHILS # (AUTO) 2.8 10^3/uL (1.8-7.8); NEUTROPHILS % (AUTO) 67 % (42-75); PLATELET COUNT 206 10^3/uL (130-400); WHITE BLOOD COUNT 4.2 10^3/uL (4.3-11.0)
[2020-09-26 12:45] LABS: ALBUMIN 4.3 GM/DL (3.2-4.5); CHLORIDE 103 MMOL/L (98-107); POTASSIUM 3.5 MMOL/L (3.6-5.0); SODIUM 138 MMOL/L (135-145)
[2020-09-26 12:46] LABS: CALCIUM 9.4 MG/DL (8.5-10.1)
[2020-09-26 12:48] LABS: GLUCOSE 89 MG/DL (70-105); TOTAL PROTEIN 7.6 GM/DL (6.4-8.2)
[2020-09-26 12:49] LABS: BILIRUBIN,TOTAL 1.1 MG/DL (0.1-1.0); CARBON DIOXIDE 27 MMOL/L (21-32)
[2020-09-26 12:51] LABS: ALKALINE PHOSPHATASE 121 U/L (40-136); CREATININE SERUM 0.62 MG/DL (0.60-1.30); GFR ESTIMATED > 60
[2020-09-26 12:52] LABS: BUN/CREATININE RATIO 10
[2020-09-26 12:54] LABS: ALANINE AMINOTRANSFERASE 335 U/L (0-55)
--- NOTE | 2020-09-26 13:21 | Diagnostic Imaging Report ---
PROCEDURE: CT abdomen and pelvis with contrast. TECHNIQUE: Multiple contiguous axial images were obtained through the abdomen and pelvis after administration of intravenous contrast. Auto Exposure Controls were utilized during the CT exam to meet ALARA standards for radiation dose reduction. All CT scans use one or more of the following dose optimizing techniques: automated exposure control, MA and/or KvP adjustment based on patient size and exam type or iterative reconstruction. INDICATION: Abdominal pain, fever, cramps. COMPARISON: Abdominal CT of 08/28/2006. FINDINGS: The appendix is well visualized and normal. No periappendiceal edema. There is no hydroureteronephrosis. No opaque urinary tract calculi at this nonenhanced study. The gallbladder is surgically absent with no pathological distention of the bile ducts. The spleen and pancreas are unremarkable. The aortoiliac and mesenteric vessels are patent and nonaneurysmal. There is progressive bilateral adrenal nodularity. On the right, it measures a maximal transverse thickness of 2 cm and a long axis length of about 2 cm. On the left, this measures 2.5 x 1.8 cm. The adrenals show no obvious macroscopic fat but they are fairly low in density at the dynamic phase. A correlative outpatient adrenal protocol MRI is recommended as it is unclear if these are adenomatous or of other etiology including potential metastases. This patient's lung bases and the bony structures are nonacute. There is no ascites. There is no abdominal/pelvic mesenteric or retroperitoneal lymphadenopathy. Some very slight stranding and hazy increased density of the fat along the mesenteric root appears similar to the previous exam with a few shotty subcentimeter mesenteric lymph nodes along the root. A hyperdense right ovarian nodule raises the question of a hemorrhagic cyst measuring 1.4 cm. The uterus is unremarkable. The urinary bladder is unremarkable. There is no ascites. No ileus or bowel obstruction. IMPRESSION: 1. New bilateral adrenal nodules, indeterminate adenomas versus other etiology. A nonemergent outpatient correlative adrenal protocol MRI is recommended. 2. Probable hemorrhagic right ovarian cyst measuring 1.4 cm. A pelvic ultrasound is suggested. No secondary findings of adnexal torsion. 3. Normal appendix with nonacute unobstructed urinary tracts. Previous cholecystectomy with no hepatobiliary abnormality identified. 4. Similar mild stranding of the fat along the mesenteric root with a few small subcentimeter shotty mesenteric lymph nodes. This may be some mild recurrent panniculitis. Dictated by: Dictated on workstation # [id number]
== END ==
LOC: RAD 12:45
PROVIDERS: ATTEND Family Medicine
DX: E27.8 Other specified disorders of adrenal gland (principal); R10.11 Right upper quadrant pain; R10.12 Left upper quadrant pain; R05 Cough; R50.9 Fever, unspecified; R63.0 Anorexia; R94.5 Abnormal results of liver function studies; Z90.49 Acquired absence of other specified parts of digestive tract
CPT/HCPCS: 36415; 74177; 80053; 85025; 86308; 86677; 86738

== ENCOUNTER → 2020-10-05 | Outpatient (CLI) | payer OTHER ==
[~2020-10-05] MED LIST changes: -CATHETER FLUSH 10 ML SYR IV PRN; -HOLD METFORMIN - RECEIVED CONTRAST 20 ML VIAL IV SCH; -IOHEXOL 350 MG/ML 100 ML (OMNIPAQUE 350) VIAL IV ONE; -NS 100 ML (IVPB) BAG IV ONE
--- NOTE | 2020-10-09 13:35 | Diagnostic Imaging Report ---
INDICATION: Routine screening. COMPARISON: 11/18/2018 and 10/19/2017. TECHNIQUE: 2D and 3D bilateral screening mammography was performed with CAD. FINDINGS: Scattered fibroglandular densities are identified bilaterally. A circumscribed nodule in the retroareolar and medial left breast appears stable. No spiculated mass or malignant appearing microcalcifications are seen. The axillae are unremarkable. IMPRESSION: No mammographic features suspicious for malignancy are identified. ACR BI-RADS Category 2: Benign findings. Result letter will be mailed to the patient. Note: At least 10% of breast cancer is not imaged by mammography. Dictated by: Dictated on workstation # [id number]
== END ==
LOC: RAD 08:15
PROVIDERS: ATTEND Family Medicine
DX: Z12.31 Encounter for screening mammogram for malignant neoplasm of breast (principal)
CPT/HCPCS: 77063; 77067

== ENCOUNTER → 2020-10-11 | Outpatient (CLI) | payer OTHER ==
--- NOTE | 2020-10-11 18:07 | Diagnostic Imaging Report ---
PROCEDURE: MR imaging abdomen without contrast. TECHNIQUE: Multiplanar, multisequence MR imaging of the abdomen was performed without contrast. INDICATION: Bilateral adrenal masses. COMPARISON: CT abdomen and pelvis from 09/26/2020. FINDINGS: There are bilateral adrenal masses which have the same imaging characteristics. Both of these are T1 isointense to liver on in-phase imaging and on opposed phase imaging have complete signal dropout indicative of the presence of fat, and confirming these to be benign adenomas. The left adrenal nodule measures 1.9 x 1.7 cm. The right adrenal nodule measures 1.6 x 1.7 cm. The liver is normal in appearance. Cholecystectomy has been performed. Spleen and pancreas are normal by noncontrast imaging. No renal mass or hydronephrosis. No ascites. IMPRESSION: 1. MRI confirms the bilateral adrenal lesions to be benign adenomas. These require no dedicated follow-up imaging. Dictated by: Dictated on workstation # [id number]
== END ==
LOC: RAD 16:15
PROVIDERS: ATTEND Family Medicine
DX: E27.8 Other specified disorders of adrenal gland (principal); R93.5 Abnormal findings on diagnostic imaging of other abdominal regions, including retroperitoneum
CPT/HCPCS: 74181

== ENCOUNTER → 2021-09-27 | Outpatient (CLI) | payer OTHER ==
--- NOTE | 2021-09-27 13:42 | Diagnostic Imaging Report ---
INDICATION: PAIN COMPARISON: None. FINDINGS: 3 views of the left shoulder were obtained. There is no fracture, dislocation, or other acute bony abnormality identified. The soft tissues appear unremarkable. No radiopaque foreign body is identified. The visualized portions of the left lung are clear. IMPRESSION: No acute fractures or dislocations of the left shoulder. Dictated by: Dictated on workstation # [id number]
== END ==
LOC: RAD 11:27
PROVIDERS: ATTEND Family Medicine
DX: M25.512 Pain in left shoulder (principal)
CPT/HCPCS: 73030

== ENCOUNTER 2021-11-15 08:31 | Emergency (ER) | payer OTHER ==
[~2021-11-15] VITALS: Ht 172 cm; Wt 113.3 kg
[2021-11-15] MEDS ORDERED: CLIN-144 (08:44)
[2021-11-15 08:52] LABS: BASOPHILS # (AUTO) 0.1 10^3/uL (0.0-0.1); BASOPHILS % (AUTO) 1 % (0-10); EOSINOPHILS # (AUTO) 0.1 10^3/uL (0.0-0.3); EOSINOPHILS % (AUTO) 2 % (0-10); HEMATOCRIT 41 % (35-52); HEMOGLOBIN 13.9 g/dL (11.5-16.0); LYMPHOCYTES % (AUTO) 28 % (12-44); MEAN CORPUSCULAR HEMOGLOBIN 30 pg (25-34); MEAN CORPUSCULAR HGB CONC 34 g/dL (32-36); MEAN CORPUSCULAR VOLUME 88 fL (80-99); MEAN PLATELET VOLUME 10.9 fL (9.0-12.2); MONOCYTES # (AUTO) 0.5 10^3/uL (0.0-1.0); MONOCYTES % (AUTO) 8 % (0-12); NEUTROPHILS # (AUTO) 4.5 10^3/uL (1.8-7.8); NEUTROPHILS % (AUTO) 62 % (42-75); PLATELET COUNT 250 10^3/uL (130-400); WHITE BLOOD COUNT 7.2 10^3/uL (4.3-11.0)
[2021-11-15 09:06] LABS: ALBUMIN 4.5 GM/DL (3.2-4.5)
[2021-11-15 09:08] LABS: CALCIUM 9.3 MG/DL (8.5-10.1)
[2021-11-15 09:09] LABS: TOTAL PROTEIN 7.7 GM/DL (6.4-8.2)
[2021-11-15 09:11] LABS: BILIRUBIN,TOTAL 0.4 MG/DL (0.1-1.0)
[2021-11-15 09:13] LABS: CREATININE SERUM 0.68 MG/DL (0.60-1.30)
--- NOTE | 2021-11-15 09:13 | ED Chest Pain ---
General Chief Complaint: Chest Pain Stated Complaint: CP, L ARM NUMBNESS,SOB Nursing Triage Note: PT PRESENTS TO ED WITH COMPLAINTS OF CP STARTING AT 0700 THIS AM AND L ARM NUMBNESS AND SOA. Source: patient, family, old records Exam Limitations: no limitations History of Present Illness Date Seen by Provider: Nov 15, 2021 Time Seen by Provider: 08:39 Initial Comments This 51-year-old woman presents to the emergency room with left-sided chest pain and numbness in the left arm with associated shortness of breath that started while she was getting ready for work this morning at 0700. She took 1 aspirin 81 mg tablet. Pain was 4/10 at its worst and is now 2/10. She has not identified any exacerbating or alleviating factors. Review of chart reveals cardiac angiography in July 2019 demonstrating mild nonobstructive coronary artery disease. Patient also makes note of hiatal hernia history. 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 Arellano and her primary care provider is Dr. Crabtree. She has epigastric tenderness on exam. Allergies and Home Medications Allergies Coded Allergies: codeine (Verified Allergy, Mild, ITCHING/HIVES, 11/18/18) erythromycin base (Verified Allergy, Mild, ITCHING/HIVES, 11/18/18) levofloxacin (Verified Allergy, Mild, ITCHING/HIVES, 11/18/18) tetracycline (Verified Allergy, Mild, "ALL CYCLINS", 11/18/18) spironolactone (Verified Allergy, Unknown, 11/15/21) Patient Home Medication List Home Medication List Reviewed: Yes Adalimumab (Humira) 40 Mg/0.4 Ml Syringekit, 40 MG SQ WEEK, (Reported) Entered as Reported by: SUE CUADRA on 07/13/19 0722 Amlodipine Besylate (Amlodipine Besylate) 10 Mg Tablet, 10 MG PO DAILY, (Reported) Entered as Reported by: JAYSON BROWN on 11/18/18 1028 Aspirin (Aspirin) 81 Mg Tab.chew, 81 MG PO DAILY, (Reported) Entered as Reported by: JAYSON BROWN on 11/18/18 1028 Clindamycin HCl (Clindamycin HCl) 300 Mg Capsule, (Reported) Entered as Reported by: SHELBIE IBRAHIM on 11/15/21 0844 Last Action: New Order Metoprolol Succinate (Metoprolol Succinate) 50 Mg Tab.er.24h, 50 MG PO BID, (Reported) Entered as Reported by: JAYSON BROWN on 11/18/18 1028 Omeprazole (Omeprazole) 20 Mg Capsule.dr, 20 MG PO BID, (Reported) Entered as Reported by: JAYSON BROWN on 11/18/18 1028 Pravastatin Sodium (Pravastatin Sodium) 20 Mg Tablet, 20 MG PO DAILY, (Reported) Entered as Reported by: JAYSON BROWN on 11/18/18 1028 Sucralfate (Carafate) 1 Gram Tablet, 1 GM PO QID Prescribed by: KARISHMA COLES on 11/15/21 1201 Review of Systems Review of Systems Constitutional: no symptoms reported EENTM: No Symptoms Reported Respiratory: See HPI Cardiovascular: See HPI Gastrointestinal: See HPI Genitourinary: No Symptoms Reported Musculoskeletal: no symptoms reported Skin: no symptoms reported Psychiatric/Neurological: No Symptoms Reported Endocrine: No Symptoms Reported Past Dutqmlf-Chzitb-Yrloxy Hx Patient Social History Tobacco Use?: Yes Tobacco type used: Cigarettes Smoking Status: Current Everyday Smoker Substance use?: No Alcohol Use?: No Pt feels they are or have been: No Immunizations Up To Date Tetanus Booster (TDap): Unknown First/Initial COVID19 Vaccinat: yes Second COVID19 Vaccination Jj: yes COVID19 Vaccine Five [employer]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: [email or web address] Seasonal Allergies Seasonal Allergies: Yes Past Medical History Surgery/Hospitalization HX: pmh:HS, high chol, gerd, htn Surgeries: Yes (2 C-SECT.,ANKLE,CYSTS REMOVED FROM UNDERARMS, BACK) Cardiac (Cardiac cath 2019 with no interventions, mild nonobstructive CAD), Gallbladder Respiratory: No Sleep Apnea Cardiac: Yes Coronary Artery Disease (Mild nonobstructive CAD on cath 2019), High Cholesterol, Hypertension Neurological: No Reproductive Disorders: No Sexually Transmitted Disease: No HIV/AIDS: No Genitourinary: No Gastrointestinal: Yes Gastroesophageal Reflux, Hiatal Hernia Musculoskeletal: Yes Arthritis Endocrine: No HEENT: Yes (GLASSES) Loss of Vision: Denies Hearing Impairment: Denies Cancer: No Psychosocial: No Integumentary: No Blood Disorders: No Adverse Reaction/Blood Tranf: No (N/A) Physical Exam Vital Signs Vital Signs - First Documented 11/15/21 08:35 Temp 36.4 Pulse 65 Resp 16 B/P (MAP) 166/94 (118) Pulse Ox 100 Capillary Refill : Less Than 3 Seconds Height, Weight, BMI Height: 5'8.00" Weight: 212lbs. 0.0oz. 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 Norm as Tested Skin: Normal Color, Warm/Dry Progress/Results/Core Measures Results/Orders Lab Results Laboratory Tests Test 11/15/21 08:46 11/15/21 10:59 Range/Units White Blood Count 7.2 4.3-11.0 10^3/uL Red Blood Count 4.67 3.80-5.11 10^6/uL Hemoglobin 13.9 11.5-16.0 g/dL Hematocrit 41 35-52 % Mean Corpuscular Volume 88 80-99 fL Mean Corpuscular Hemoglobin 30 25-34 pg Mean Corpuscular Hemoglobin Concent 34 32-36 g/dL Red Cell Distribution Width 12.8 10.0-14.5 % Platelet Count 250 130-400 10^3/uL Mean Platelet Volume 10.9 9.0-12.2 fL Immature Granulocyte % (Auto) 0 % Neutrophils (%) (Auto) 62 42-75 % Lymphocytes (%) (Auto) 28 12-44 % Monocytes (%) (Auto) 8 0-12 % Eosinophils (%) (Auto) 2 0-10 % Basophils (%) (Auto) 1 0-10 % Neutrophils # (Auto) 4.5 1.8-7.8 10^3/uL Lymphocytes # (Auto) 2.0 1.0-4.0 10^3/uL Monocytes # (Auto) 0.5 0.0-1.0 10^3/uL Eosinophils # (Auto) 0.1 0.0-0.3 10^3/uL Basophils # (Auto) 0.1 0.0-0.1 10^3/uL Immature Granulocyte # (Auto) 0.0 0.0-0.1 10^3/uL Prothrombin Time 13.8 12.2-14.7 SEC INR Comment 1.0 0.8-1.4 Activated Partial Thromboplast Time 32 24-35 SEC Sodium Level 139 135-145 MMOL/L Potassium Level 4.0 3.6-5.0 MMOL/L Chloride Level 106 98-107 MMOL/L Carbon Dioxide Level 23 21-32 MMOL/L Anion Gap 10 5-14 MMOL/L Blood Urea Nitrogen 6 L 7-18 MG/DL Creatinine 0.68 0.60-1.30 MG/DL Estimat Glomerular Filtration Rate 104 BUN/Creatinine Ratio 9 Glucose Level 97 70-105 MG/DL Calcium Level 9.3 8.5-10.1 MG/DL Corrected Calcium 8.9 8.5-10.1 MG/DL Magnesium Level 2.1 1.6-2.4 MG/DL Total Bilirubin 0.4 0.1-1.0 MG/DL Aspartate Amino Transf (AST/SGOT) 18 5-34 U/L Alanine Aminotransferase (ALT/SGPT) 21 0-55 U/L Alkaline Phosphatase 70 40-136 U/L Myoglobin 29.9 10.0-92.0 NG/ML Troponin I < 0.028 < 0.028 <0.028 NG/ML Total Protein 7.7 6.4-8.2 GM/DL Albumin 4.5 3.2-4.5 GM/DL Lipase 15 8-78 U/L My Orders Orders - KARISHMA FIGUEROA MD Ekg Tracing (11/15/21 08:35) Cbc With Automated Diff (11/15/21 08:38) Magnesium (11/15/21 08:38) Chest 1 View, Ap/Pa Only (11/15/21 08:38) Comprehensive Metabolic Panel (11/15/21 08:38) Myoglobin Serum (11/15/21 08:38) Protime With Inr (11/15/21 08:38) Partial Thromboplastin Time (11/15/21 08:38) O2 (11/15/21 08:38) Monitor-Rhythm Ecg Trace Only (11/15/21 08:38) Ed Iv/Invasive Line Start (11/15/21 08:38) Troponin I [place] (11/15/21 08:38) Ondansetron Injection (Zofran Injectio (11/15/21 09:15) Lidocaine 2% Viscous 15 Ml (Xylocaine Vi (11/15/21 09:15) Antacid Suspension (Mylanta Suspension (11/15/21 09:15) Aspirin Chewable Tablet (Baby Aspirin Ch (11/15/21 09:15) Lipase (11/15/21 09:03) Troponin I [place] (11/15/21 11:00) Medications Given in ED Current Medications Medications Dose Ordered Sig/Jolie Route Start Time Stop Time Status Last Admin Dose Admin Al Hydrox/Mg Hydrox/Simethicone 30 ml ONCE ONCE PO 11/15/21 09:15 11/15/21 09:16 DC 11/15/21 09:27 30 ML Aspirin 243 mg ONCE ONCE PO 11/15/21 09:15 11/15/21 09:16 DC 11/15/21 09:27 243 MG Lidocaine HCl 15 ml ONCE ONCE PO 11/15/21 09:15 11/15/21 09:16 DC 11/15/21 09:27 15 ML Ondansetron HCl 4 mg ONCE ONCE IVP 11/15/21 09:15 11/15/21 09:16 DC 11/15/21 09:27 4 MG Vital Signs/I&O 11/15/21 11/15/21 08:35 12:16 Temp 36.4 Pulse 65 60 Resp 16 18 B/P (MAP) 166/94 (118) 122/83 Pulse Ox 100 98 Blood Pressure Mean: 118 Progress Progress Note #1: Time: 09:10 Progress Note Patient's chest pain is presently 2/10. She has demonstrated epigastric te nderness on exam and has history of hiatal hernia. We will trial a GI cocktail pretreated with Zofran. She will be given the balance of her aspirin with 243 mg chewed. Cardiopulmonary work-up is being pursued while we are also evaluating her epigastric tenderness. She had a cardiac cath in July 2019 demonstrating only mild nonobstructive coronary artery disease. I plan to also obtain a 4-hour troponin as part of her cardiac rule out during this visit. Progress Note #2: Time: 11:54 Progress Note Symptoms resolved with GI cocktail. Repeat troponin was negative. Her pain was likely secondary to hiatal hernia/gastritis/esophagitis. See discharge instructions for further discussion. Initial ECG Impression Date: Nov 15, 2021 Initial ECG Impression Time: 08:39 Initial ECG Rate: 63 Initial ECG Rhythm: Normal Sinus Initial ECG Intervals: Normal Initial ECG Impression: Normal Comment Normal sinus rhythm with no ST elevation or depression. No abnormal intervals or axis deviation. Diagnostic Imaging Diagonstic Imaging: Xray Plain Films/CT/US/NM/MRI: chest Comments NAME: LICO KEARNS [facility] REC#: [id number] PT STATUS: DEP ER : 1970 PHYSICIAN: KARISHMA FIGUEROA MD ADMIT DATE: 11/15/21/ER Signed Date of Exam:11/15/21 CHEST 1 VIEW, AP/PA ONLY INDICATION: Chest pain COMPARISON: 07/13/2019 FINDINGS: Single frontal view of the chest demonstrates normal heart size and pulmonary vascularity. The lungs are well aerated and clear. No large pleural effusion or pneumothorax is seen. The visualized osseous structures show no acute abnormalities. IMPRESSION: 1. No acute cardiopulmonary process. Dictated by: Dictated on workstation # [id number] Dict: 11/15/21 1055 Trans: 11/15/21 1700 [facility] [id number] Interpreted by: ANGIE ROSENBAUM MD Electronically signed by: ANGIE ROSENBAUM MD 11/15/21 1700 Departure Impression Primary Impression: Atypical chest pain Additional Impression: Epigastric pain Disposition: 01 HOME, SELF-CARE Condition: Improved Departure-Patient Inst. Referrals: JULITO CRABTREE MD (PCP/Family) Primary Care Physician Patient Instructions: Chest Pain That Is Not Caused by the Heart (DC), Hiatal Hernia Add. Discharge Instructions: Your chest and abdominal pain is likely related to hiatal hernia, gastritis, and/or esophagitis. Continue omeprazole twice daily as previously directed. Add Carafate as prescribed. Crush or dissolve and mix into 5 to 10 mL water. Take when you wake up in the morning 30 minutes before eating and drinking, 30 minutes before meals, and before bed 4 times daily. Avoid the following: Eating large meals, eating close to bedtime, caffeine, carbonation, tomato products, citrus fruits and juices, chocolate, mints, alcohol, tobacco, NSAID medications such as ibuprofen or naproxen, fatty/greasy foods, spicy foods, or anything else you know irritates your stomach. Work toward quitting smoking as quickly as possible. This will improve your gastrointestinal health and your general health. We will also reduce your risk of having progressive heart disease. Working toward weight loss to reduce abdominal pressure on your stomach can also reduce symptoms. If following the above measures does not resolve your pain completely within 1 to 2 weeks, please follow-up with your primary care provider and seek referral f or endoscopy. Follow-up with the cardiology offices soon as possible. All discharge instructions reviewed with patient and/or family. Voiced understanding. Scripts Sucralfate (Carafate) 1 Gram Tablet 1 GM PO QID, #120 TAB Crush or dissolve. Mix into 5-10 mL water to make slurry. Take 30 minutes before eating and drinking and before bed. Prov: KARISHMA FIGUEROA MD 11/15/21 Copy Copies To 1: NINA ARELLANO MD Copies To 2: JULITO CRABTREE MD, JOSHUA T MD Nov 15, 2021 09:13
[2021-11-15 09:15] LABS: MAGNESIUM 2.1 MG/DL (1.6-2.4); PROTHROMBIN TIME PATIENT 13.8 SEC (12.2-14.7)
[2021-11-15] MEDS ORDERED: ANTACID SUSP 30 ML UDC (MYLANTA) PO ONE (09:15)
[2021-11-15] MEDS ORDERED: ASPIRIN 81 MG CHEW (CHILDREN'S ASA) PO ONE (09:15)
[2021-11-15] MEDS ORDERED: LIDOCAINE 2% VISCOUS 15 ML UDC PO ONE (09:15)
[2021-11-15] MEDS ORDERED: ONDANSETRON 4 MG/2 ML (SDV) Z0FRAN IVP ONE (09:15)
--- NOTE | 2021-11-15 10:58 | Diagnostic Imaging Report ---
INDICATION: Chest pain COMPARISON: 07/13/2019 FINDINGS: Single frontal view of the chest demonstrates normal heart size and pulmonary vascularity. The lungs are well aerated and clear. No large pleural effusion or pneumothorax is seen. The visualized osseous structures show no acute abnormalities. IMPRESSION: 1. No acute cardiopulmonary process. Dictated by: Dictated on workstation # [id number]
[2021-11-15] MEDS ORDERED: SUCR1TAB36 PO (12:01)
[2021-11-15 12:16] VITALS: BP 122/83
== END 2021-11-15 12:15 | disposition home or self-care (01) ==
LOC: EDUNIT# 08:31 → ER 08:33
DX: R07.89 Other chest pain (principal); R10.13 Epigastric pain; F17.210 Nicotine dependence, cigarettes, uncomplicated; Z87.19 Personal history of other diseases of the digestive system
CPT/HCPCS: 36415; 71045; 80053; 83690; 83735; 83874; 84484; 85025; 85610; 85730; 93005; 93041

== ENCOUNTER → 2022-04-09 | Outpatient (RCR) | payer OTHER ==
[2022-03-26 13:39] VITALS: BP 127/71
[2022-03-26] MEDS: inFLIXimab FOR IV 500 MG in NORMAL SALINE 250 ML IV SCH (14:15)
[~2022-04-09] VITALS: Wt 95.5 kg
[~2022-04-09] MED LIST changes: +CLIN-144; +SUCR1TAB36 PO
[2022-04-09] MEDS: inFLIXimab FOR IV 500 MG in NORMAL SALINE 250 ML IV SCH (13:42)
[2022-04-09 16:08] VITALS: BP 145/64
== END | disposition home or self-care (01) ==
LOC: EDSTATUS 03-19 12:56 → SDC 03-26 12:58
PROVIDERS: ATTEND Nurse Practitioner Family
DX: L40.0 Psoriasis vulgaris (principal); Z79.899 Other long term (current) drug therapy
CPT/HCPCS: 96365; 96366

== ENCOUNTER → 2022-07-04 | Outpatient (CLI) | payer OTHER | LOC: CARD 09:20 | PROVIDERS: ATTEND Internal Medicine Cardiovascular Disease | DX: I08.2 Rheumatic disorders of both aortic and tricuspid valves (principal) | CPT/HCPCS: 93306 ==

== ENCOUNTER 2022-08-26 09:22 | Outpatient (RCR) | payer OTHER ==
[2022-08-12 09:26] VITALS: BP 127/61
[~2022-08-26] VITALS: Wt 97.7 kg
[~2022-08-26 09:22] MED LIST changes: +INFLIXIMAB DYYB IV ONE; +NORMAL SALINE IV ONE
[2022-08-26 09:26] VITALS: BP 109/59
[2022-08-26] MEDS ORDERED: INFLIXIMAB DYYB IV ONE (09:30)
[2022-08-26] MEDS ORDERED: NORMAL SALINE IV ONE (09:30)
== END 2022-09-07 | disposition home or self-care (01) ==
LOC: SDC 09:22
PROVIDERS: ATTEND Nurse Practitioner Family
DX: L40.0 Psoriasis vulgaris (principal)
CPT/HCPCS: 96365; 96366; Q5102

== ENCOUNTER 2022-09-23 08:41 | Outpatient (RCR) | payer OTHER ==
[~2022-09-23] VITALS: Wt 97.7 kg
[~2022-09-23 08:41] MED LIST changes: -INFLIXIMAB DYYB IV ONE; -NORMAL SALINE IV ONE
[2022-09-23] MEDS ORDERED: NORMAL SALINE IV ONE (09:00)
[2022-09-23] MEDS ORDERED: INFLIXIMAB DYYB IV ONE (09:00)
[2022-09-23 09:07] VITALS: BP 142/67
== END 2022-10-08 | disposition home or self-care (01) ==
LOC: SDC 08:41
PROVIDERS: ATTEND Nurse Practitioner Family
DX: L40.0 Psoriasis vulgaris (principal)
CPT/HCPCS: 96365; Q5102

== ENCOUNTER → 2022-11-18 | Outpatient (CLI) | payer OTHER ==
[~2022-11-18] MED LIST changes: +INFLIXIMAB DYYB IV ONE; +NORMAL SALINE IV ONE
[2022-11-18 10:43] VITALS: BP 113/63
== END ==
LOC: SDC 08:45
PROVIDERS: ATTEND Nurse Practitioner Family
DX: L40.0 Psoriasis vulgaris (principal)
CPT/HCPCS: 96365; 96366; Q5102

== ENCOUNTER → 2022-11-20 | Outpatient (CLI) | payer OTHER ==
[~2022-11-20] MED LIST changes: -INFLIXIMAB DYYB IV ONE; -NORMAL SALINE IV ONE
--- NOTE | 2022-11-20 17:30 | Diagnostic Imaging Report ---
INDICATION: COUGH, SOA COMPARISON: 11/15/2021 FINDINGS: Frontal and lateral views of the chest demonstrate normal heart size and pulmonary vascularity. The lungs are clear. There are no signs of infiltrate, pleural effusions or pneumothoraces. The visualized osseous structures show no acute abnormalities. IMPRESSION: 1. No acute process. No signs of infiltrates, effusions or pneumothoraces. Dictated by: Dictated on workstation # [id number]
== END ==
LOC: RAD 17:20
PROVIDERS: ATTEND Family Medicine
DX: R05.9 Cough, unspecified (principal); R06.02 Shortness of breath
CPT/HCPCS: 71046

== ENCOUNTER → 2023-01-13 | Outpatient (CLI) | payer OTHER ==
[~2023-01-13] MED LIST changes: +INFLIXIMAB DYYB IV SCH; +NORMAL SALINE IV SCH
[2023-01-13 09:45] VITALS: BP 126/69
== END ==
LOC: SDC 09:33
PROVIDERS: ATTEND Nurse Practitioner Family
DX: L40.0 Psoriasis vulgaris (principal)
CPT/HCPCS: 96365; Q5102

== ENCOUNTER → 2023-03-04 | Outpatient (CLI) | payer OTHER ==
[~2023-03-04] MED LIST changes: -INFLIXIMAB DYYB IV SCH; -NORMAL SALINE IV SCH
--- NOTE | 2023-03-04 09:11 | Diagnostic Imaging Report ---
CT Lung Screening INDICATION:Screening for lung cancer, 30 pack year history of smoking, current smoker TECHNIQUE: Noncontrast, low-dose CT imaging performed according to the lung cancer screening protocol. Auto Exposure Controls were utilize during the CT exam to meet ALARA standards for radiation dose reduction. COMPARISON:Radiographs dated 11/20/2022 FINDINGS:No significant adenopathy within the chest. No aneurysmal dilatation of thoracic aorta. Minimal scattered vascular calcifications. The heart is within normal limits in size. No pericardial effusion. No pleural effusion. The trachea is patent. No pneumothorax. 0.9 x 0.8 x 0.4 cm pleural-based posterior left lower lobe nodular density is present, series 2, image 108. Mild dependent atelectasis. The minimally visualized upper abdomen is unremarkable. Mild scattered osseous degenerative changes without acute osseous abnormality. IMPRESSION:0.7 cm solid pleural-based posterior left lower lobe pulmonary nodule is probably benign. Follow-up low-dose CT the chest is recommended in 6 months. No acute abnormality within the chest. LUNG-RADS CATEGORY:3: Probably benign MODIFIER:None OTHER SIGNIFICANT FINDINGS:Low-dose CT of the chest is recommended in 6 months. Dictated by: Dictated on workstation # [id number]
== END ==
LOC: RAD 06:39
PROVIDERS: ATTEND Family Medicine
DX: Z12.2 Encounter for screening for malignant neoplasm of respiratory organs (principal); R91.1 Solitary pulmonary nodule; F17.210 Nicotine dependence, cigarettes, uncomplicated
CPT/HCPCS: 71271

== ENCOUNTER → 2023-03-11 | Outpatient (CLI) | payer OTHER ==
[~2023-03-11] VITALS: Ht 172.7 cm; Wt 98.6 kg
[~2023-03-11] MED LIST changes: +INFLIXIMAB DYYB IV SCH; +NORMAL SALINE IV SCH
[2023-03-11 10:11] VITALS: BP 115/73
== END ==
LOC: SDC 09:17
PROVIDERS: ATTEND Nurse Practitioner Family
DX: L40.0 Psoriasis vulgaris (principal)
CPT/HCPCS: 96365; 96366; Q5102